=== PATIENT | male | born 1970 | race Two or more races ===

== ENCOUNTER 2023-09-17 19:49 | Emergency (ER) | payer OTHER ==
[~2023-09-17] VITALS: Ht 154.9 cm; Wt 66.2 kg
[2023-09-17 19:51] VITALS: TEMP 98.7
[2023-09-17] MEDS ORDERED: ACETAMINOPHEN ES 500 MG TABLET ONE (23:59)
[2023-09-18] MEDS: ACETAMINOPHEN ES 500 MG TABLET PO ONE (00:03)
[2023-09-18 00:04] VITALS: BP 115/81; O2SAT 98
== END 2023-09-18 01:12 | disposition home or self-care (01) ==
LOC: ER 19:56
DX: M54.6 Pain in thoracic spine (principal); Z90.49 Acquired absence of other specified parts of digestive tract; V89.2XXA Person injured in unspecified motor-vehicle accident, traffic, initial encounter; Y93.89 Activity, other specified; Y92.89 Other specified places as the place of occurrence of the external cause; Y99.8 Other external cause status
CPT/HCPCS: 71250-TC; 72128-TC